=== PATIENT | male | born 1990 | race Caucasian/White ===

== ENCOUNTER 2024-05-18 09:53 | Emergency (ER) | payer MEDICAID, OTHER ==
[~2024-05-18] VITALS: Ht 185.4 cm; Wt 99.0 kg
[2024-05-18 09:56] VITALS: BP 184/94; PULSE 60; RESP 16; O2SAT 98
[2024-05-18 11:15] LABS: Basophils # (auto) 0.1 10 ^3/uL (0-0.2); Basophils % (auto) 0.3 % (0.0-2.0); Eosinophils # (auto) 0.1 10 ^3/uL (0-0.8); Eosinophils % (auto) 0.4 % (0.0-7.0); Hematocrit 44.9 % (41.0-53.0); Hemoglobin 14.6 g/dL (13.5-17.5); Lymphocytes % (auto) 5.7 % (10.0-50.0); Mean Corpuscular Hemoglobin 30.7 pg (28.0-32.0); Mean Corpuscular Hgb Conc. 32.5 g/dL (32.0-36.0); Mean Corpuscular Volume 94.4 fL (80.0-100.0); Monocytes # (auto) 1.5 10 ^3/uL (0-1.3); Monocytes % (auto) 8.7 % (0.0-12.0); Neutrophils # (auto) 14.7 10 ^3/uL (1.6-8.6); Neutrophils % (auto) 84.9 % (37.0-80.0); Platelet Count (auto) 325 10^3/uL (140-450); Red Blood Cells 4.75 10^6/uL (4.5-5.90); Red Cell Distribution Width 14.1 % (11.8-14.3); White Blood Cell 17.4 10^3/uL (4.4-10.8)
--- NOTE | 2024-05-18 11:15 | DVH ---
CT CT AB PEL WO CON-NO ORAL OR IV INDICATION: abdominal pain EXAM DATE: 05/18/2024 10:44 AM COMPARISON: None RADIATION DOSE: CTDIvol: 9.53 mGy, DLP: 791.71 mGy*cm PROCEDURE: Helical CT images were obtained of the abdomen and pelvis without IV contrast Sagittal an d coronal reconstructions are provided. ORAL CONTRAST: None. ADDITIONAL IMAGES / REFORMATS: None All CT scans at this medical facility are performed using dose modulation techniques as appropriate t o a performed exam including the following: Automated exposure control was utilized; adjustment of th e MA and/or KV according to patient size; and use of iterative reconstruction technique. FINDINGS: LUNG BASE: Normal. LIVER: Normal. GALLBLADDER AND BILIARY TREE: No calcified gallstones. Normal caliber wall. No intra- or extrahepatic biliary ductal dilation. PANCREAS: Normal. SPLEEN: Normal. BOWEL: Thickening of the descending colon could be colitis. Normal appendix. ADRENALS: Normal. KIDNEYS AND URETER: 1.4 cm right kidney stone. 4.2 cm left kidney cyst. BLADDER: Normal. REPRODUCTIVE ORGANS: Normal. LYMPH NODES:No lymphadenopathy. PERITONEUM: No ascites or free air. No other fluid collection. VESSELS: Normal. RETROPERITONEUM: Normal. ABDOMINAL WALL: Bowel containing left inguinal hernia with adjacent fat stranding. Small fat containi ng ventral wall hernia. BONES: Scattered osseous degenerative changes are noted. IMPRESSION: Bowel containing left inguinal hernia with adjacent fat stranding. Thickening of the descending colon could be colitis. Normal appendix. 1.4 cm right kidney stone.
[2024-05-18 11:32] LABS: Alanine Aminotransferase 20 U/L (7-40); Albumin 4.5 g/dL (3.2-4.8); Alkaline Phosphatase 71 U/L (46-116); Anion Gap 8 (5-15); BUN/Creatinine Ratio 18.1 (10.0-20.0); Blood Urea Nitrogen 15 mg/dL (9-23); Calcium 9.4 mg/dL (8.7-10.4); Carbon Dioxide 25 mmol/L (20-31); Lipase 31 U/L (12-53); Potassium 3.6 mmol/L (3.5-5.1); Sodium 141 mmol/L (136-145)
--- NOTE | 2024-05-18 11:32 | ED.PDOC ---
History of Present Illness HPI Comments 33 y/o M, with a current left-inguinal hernia, presents with c/o left-sided groin and abdominal pain, today. Patient reports sudden and unprovoked onset of pain emanating around his left groin, surrounding his inguinal hernia, and radiating upwards towards his abdomen, this morning. Patient states on states on never seeking surgical intervention regarding hernia in the past, due to previous onset of pain resolving on its own then. He denies having any urinary symptoms, nausea, vomiting, fever, chills, or other associated symptoms or modifiers at this time. Chief Complaint: Abdominal Pain Time Seen by MD: 10:50 Primary Care Provider: JARRETT Reviewed Notes: Nurses Notes, Medications, Allergies Allergies: Coded Allergies: NO KNOWN ALLERGIES (Unverified , 05/18/24) Information Source: Patient Mode of Arrival: EMS Severity: Moderate Timing: Hours Duration: Since onset Prehospital treatment: None Past Medical History PAST MEDICAL HISTORY: Kidney Stones Past Medical History (Other): current left-inguinal hernia Surgical History (Other): left acl repair Family History Family History: Unknown Social History Smoker: Non-Smoker Alcohol: Denies ETOH Use Drugs: Marijuana Lives In: Home Gastrointestinal: reports: abdominal pain (left-sided ) Genitourinary: reports: pain (left-groin) All Other Systems: Reviewed and Negative (negative unless otherwise stated above or in HPI) Physical Exam General Appearance: Moderate Distress, Normal, Other (uncomfortable appearing) HEENT: Normal ENT Inspection, Pharynx Normal, TMs Normal Neck: Full Range of Motion, Non-Tender, Normal, Normal Inspection Respiratory: Chest Non-Tender, Lungs Clear, No Accessory Muscle Use, No Respiratory Distress, Normal Breath Sounds Cardiovascular: No Edema, No JVD, No Murmur, No Gallop, Normal Peripheral Pulses, Regular Rate/Rhythm Breast Exam: Deferred Gastrointestinal: NOT DONE Genitalia: Deferred Pelvic: Deferred Rectal: Deferred Extremities: No calf tenderness, Normal capillary refill, Normal inspection, Normal range of motion, Non-tender, No pedal edema Musculoskeletal : Apperance: Normal Neurologic: Alert, family support worker II-XII nml as Tested, No Motor Deficits, Normal Affect, Normal Mood, No Sensory Deficits Cerebellar Function: Normal Reflexes: Normal Skin: Dry, Normal Color, Warm Lymphatic: No Adenopathy Was a procedure done? Was a procedure done?: No Differential Dx Considerations may include: incarcerated hernia, strangulated hernia, cystitis, pyelonephritis, nephrolithiasis, nephritis, testicular torsion, PID, gastritis, gastroenteritis X-Ray, Labs, Meds, VS Vital Signs Date Time Temp Pulse Resp B/P (MAP) Pulse Ox O2 Delivery O2 Flow Rate FiO2 05/18/24 09:56 97.6 60 16 184/94 (124) 98 Lab Test 05/18/24 12:30 05/18/24 10:44 Range/Units Urine Color Pending Urine Clarity Pending Urine pH Pending Urine Specific Jaffrey Pending Urine Protein Pending Urine Ketones Pending Urine Blood Pending Urine Nitrite Pending Urine Bilirubin Pending Urine Urobilinogen Pending Urine Leukocyte Esterase Pending Urine RBC Pending Urine WBC Pending Urine Squamous Epithelial Cells Pending Urine Bacteria Pending Urine Glucose Pending White Blood Count 17.4 H 4.4-10.8 10^3/uL Red Blood Count 4.75 4.5-5.90 10^6/uL Hemoglobin 14.6 13.5-17.5 g/dL Hematocrit 44.9 41.0-53.0 % Mean Corpuscular Volume 94.4 80.0-100.0 fL Mean Corpuscular Hemoglobin 30.7 28.0-32.0 pg Mean Corpuscular Hemoglobin Concent 32.5 32.0-36.0 g/dL Red Cell Distribution Width 14.1 11.8-14.3 % Platelet Count 325 140-450 10^3/uL Mean Platelet Volume 8.7 6.9-10.8 fL Neutrophils (%) (Auto) 84.9 H 37.0-80.0 % Lymphocytes (%) (Auto) 5.7 L 10.0-50.0 % Monocytes (%) (Auto) 8.7 0.0-12.0 % Eosinophils (%) (Auto) 0.4 0.0-7.0 % Basophils (%) (Auto) 0.3 0.0-2.0 % Neutrophils # (Auto) 14.7 H 1.6-8.6 10 ^3/uL Lymphocytes # (Auto) 1.0 0.4-5.4 10 ^3/uL Monocytes # (Auto) 1.5 H 0-1.3 10 ^3/uL Eosinophils # (Auto) 0.1 0-0.8 10 ^3/uL Basophils # (Auto) 0.1 0-0.2 10 ^3/uL Nucleated Red Blood Cells 0.0 % Prothrombin Time 11.2 9.3-11.8 sec Prothrombin Time INR 1.06 0.9-1.15 Activated Partial Thromboplast Time 28.5 24.5-34.5 SEC Sodium Level 141 136-145 mmol/L Potassium Level 3.6 3.5-5.1 mmol/L Chloride Level 108 H 98-107 mmol/L Carbon Dioxide Level 25 20-31 mmol/L Anion Gap 8 5-15 Blood Urea Nitrogen 15 9-23 mg/dL Creatinine 0.83 0.700-1.30 mg/dL Glomerular Filtration Rate Calc 118 >90 mL/min BUN/Creatinine Ratio 18.1 10.0-20.0 Serum Glucose 115 H 74-106 mg/dL Lactic Acid Level 0.8 0.4-2.0 mmol/L Calcium Level 9.4 8.7-10.4 mg/dL Magnesium Level 2.0 1.6-2.6 mg/dL Total Bilirubin 0.6 0.2-1.0 mg/dL Aspartate Amino Transferase (AST) 13 13-40 U/L Alanine Aminotransferase (ALT) 20 7-40 U/L Alkaline Phosphatase 71 46-116 U/L Total Protein 7.0 5.7-8.2 g/dL Albumin 4.5 3.2-4.8 g/dL Lipase 31 12-53 U/L [place] [id number] DIAGNOSTIC IMAGING Diagnostic Imaging Report : [id number] Signed PATIENT: Waqar Miller ACCT: [id number] UNIT: [id number] : 1990 LOC: ER ROOM / BED: / AGE / SEX: 33 / M ADM STATUS: REG ER SERVICE 1030 ORDERING PHYSICIAN: CODY TINSLEY MD PROCEDURE(s): ABPL - CT AB PEL WO CON-NO ORAL OR IV REASON: abdominal pain ORDER NUMBER(s): [id number], ACCESSION NUMBER(s): [id number] CT CT AB PEL WO CON-NO ORAL OR IV INDICATION: abdominal pain EXAM DATE: 05/18/2024 10:44 AM COMPARISON: None RADIATION DOSE: CTDIvol: 9.53 mGy, DLP: 791.71 mGy*cm PROCEDURE: Helical CT images were obtained of the abdomen and pelvis without IV contrast Sagittal and coronal reconstructions are provided. ORAL CONTRAST: None. ADDITIONAL IMAGES / REFORMATS: None All CT scans at this medical facility are performed using dose modulation techniques as appropriate to a performed exam including the following: Automated exposure control was utilized; adjustment of the MA and/or KV according to patient size; and use of iterative reconstruction technique. FINDINGS: LUNG BASE: Normal. LIVER: Normal. GALLBLADDER AND BILIARY TREE: No calcified gallstones. Normal caliber wall. No intra- or extrahepatic biliary ductal dilation. PANCREAS: Normal. SPLEEN: Normal. BOWEL: Thickening of the descending colon could be colitis. Normal appendix. ADRENALS: Normal. KIDNEYS AND URETER: 1.4 cm right kidney stone. 4.2 cm left kidney cyst. BLADDER: Normal. REPRODUCTIVE ORGANS: Normal. LYMPH NODES:No lymphadenopathy. PERITONEUM: No ascites or free air. No other fluid collection. VESSELS: Normal. RETROPERITONEUM: Normal. ABDOMINAL WALL: Bowel containing left inguinal hernia with adjacent fat stranding. Small fat containing ventral wall hernia. BONES: Scattered osseous degenerative changes are noted. IMPRESSION: Bowel containing left inguinal hernia with adjacent fat stranding. Thickening of the descending colon could be colitis. Normal appendix. 1.4 cm right kidney stone. ATED BY: HUBER CRAWFORD MD DICTATED DATE/TIME: 05/18/24 111 SIGNED BY: HUBER CRAWFORD MD SIGNED DATE/TIME: 05/18/24 111 CC: X-Ray, Labs, Meds, VS Comment This 33-year-old male with known reducible left-sided inguinal hernia presents secondary 1 day history of increasing pain to his left groin. He states he is unable to reduce the hernia. The pain is severe with associated nausea. Denies vomiting. Denies fever, chills, sweats. CT shows an test within the inguinal canal with fat stranding. This is a concern for incarceration. The patient was made NPO, started on IV hydration, provided with morphine, Zofran, and Zosyn. Patient will be admitted for for surgical management of the incarcerated left inguinal hernia. Time of 1ST Reevaluation: 11:20 Reevaluation 1ST: Unchanged Patient Education/Counseling: Diagnosis, Treatment Family Education/Counseling: No Family Present Departure 1 Departure Time of Disposition: 13:20 Impression: Primary Impression: Incarcerated hernia Additional Impression: Abdominal pain Disposition: ADMITTED INPATIENT Admit to: Tele Condition: Serious Critical Care Note Critical Care Time?: No Stability Stability form required: No Heart Score Heart Score: Heart Score Response (Comments) Value History N/A 0 EKG N/A 0 Age N/A 0 Risk Factors N/A 0 Troponin N/A 0 Total 0 I personally scribed for CODY TINSLEY MD ([email or web address]) on 05/18/24 at 11:32. Electronically submitted by Dima Bravo ([email or web address]). I personally scribed for CODY TINSLEY MD ([email or web address]) on 05/18/24 at 11:33. Electronically submitted by Dima Bravo ([email or web address]). CODY TINSLEY MD May 18, 2024 11:32
[2024-05-18 11:33] LABS: Bilirubin, Total 0.6 mg/dL (0.2-1.0)
[2024-05-18 11:37] LABS: INR 1.06 (0.9-1.15); Partial Thromboplastin Time 28.5 SEC (24.5-34.5); Prothrombin Time 11.2 sec (9.3-11.8)
[2024-05-18 11:49] LABS: Aspartate Aminotransferase 13 U/L (13-40); Chloride 108 mmol/L (98-107); Glucose 115 mg/dL (74-106)
[2024-05-18 13:06] LABS: Urine Bacteria None Seen /hpf (None Seen)
[2024-05-18 13:20] LABS: Urine Blood 2+ /uL (Negative); Urine Clarity Clear (Clear); Urine Color Yellow (Yellow); Urine Mucus FEW (None Seen); Urine Protein, UAD TRACE (Negative); Urine Specific Gravity 1.026 (1.001-1.035); Urine Urobilinogen 3 mg/dL (Negative); Urine WBC 1 /hpf (0 - 3)
[2024-05-18] MEDS ORDERED: PIPERACILLIN-TAZOB 3.375GM 100 ML IV ONE (13:30)
[2024-05-18] MEDS ORDERED: MORPHINE SULFATE 4 MG/ML SYR/VIAL IV ONE (13:30)
[2024-05-18] MEDS ORDERED: ONDANSETRON HCL 4 MG/2 ML VIAL IV ONE (13:30)
[2024-05-18] MEDS ORDERED: PENI500T2 PO (15:06)
== END 2024-05-18 15:02 | disposition left against medical advice (07) ==
LOC: ER 09:53 → EDBD 09:53 → ER 15:01
DX: K46.0 Unspecified abdominal hernia with obstruction, without gangrene (principal); N20.0 Calculus of kidney; F12.10 Cannabis abuse, uncomplicated; Z79.899 Other long term (current) drug therapy
CPT/HCPCS: 36415; 74176; 80053; 81001; 83605; 83690; 83735; 85025; 85610; 85730

== ENCOUNTER 2024-05-19 22:04 | Inpatient (IN) | payer MEDICAID ==
[~2024-05-19] VITALS: Ht 182.9 cm; Wt 99.1 kg
[2024-05-19 22:57] LABS: Basophils # (auto) 0.1 10 ^3/uL (0-0.2); Basophils % (auto) 0.6 % (0.0-2.0); Eosinophils # (auto) 0.2 10 ^3/uL (0-0.8); Hematocrit 44.9 % (41.0-53.0); Hemoglobin 14.8 g/dL (13.5-17.5); Lymphocytes # (auto) 2.7 10 ^3/uL (0.4-5.4); Lymphocytes % (auto) 22.2 % (10.0-50.0); Mean Corpuscular Hemoglobin 31.3 pg (28.0-32.0); Mean Corpuscular Volume 94.9 fL (80.0-100.0); Monocytes # (auto) 1.4 10 ^3/uL (0-1.3); Monocytes % (auto) 11.5 % (0.0-12.0); Neutrophils # (auto) 7.9 10 ^3/uL (1.6-8.6); Neutrophils % (auto) 63.7 % (37.0-80.0); Nucleated Red Blood Cells % 0.1 %; Platelet Count (auto) 332 10^3/uL (140-450); Red Blood Cells 4.74 10^6/uL (4.5-5.90); Red Cell Distribution Width 13.7 % (11.8-14.3); White Blood Cell 12.4 10^3/uL (4.4-10.8)
[2024-05-19 23:09] LABS: Chloride 105 mmol/L (98-107); Potassium 3.7 mmol/L (3.5-5.1); Sodium 141 mmol/L (136-145)
[2024-05-19 23:10] LABS: Anion Gap 9 (5-15); Calcium 10.1 mg/dL (8.7-10.4); Carbon Dioxide 27 mmol/L (20-31)
[2024-05-19 23:15] LABS: BUN/Creatinine Ratio 7.5 (10.0-20.0); Glucose 96 mg/dL (74-106)
--- NOTE | 2024-05-19 23:17 | ED.PDOC ---
General HPI Comments 33-year-old male with PMHx Kidney Stones presents with a chief complaint of left inguinal hernia pain x 2 days. Patient states that he has had an inguinal hernia since October 2023 and that it usually protrudes, then goes back in at night. Patient mentions that for the past x 2 days, the pain has increased to the hernia and it has not reduced on its own. Patient mentions that it now is affecting his bowel habits and is not able to use the restroom. Patient was seen here yesterday, but states that he eloped because of the wait. No other symptoms or modifying factors present at this time. Chief Complaint: Abdominal Pain Time Seen by MD: 23:04 Primary Care Provider: JARRETT Reviewed notes: Medications, Allergies Allergies: Coded Allergies: NO KNOWN ALLERGIES (Unverified , 05/18/24) Information Source: Patient Mode of Arrival: Ambulatory Severity: Moderate Inability to void: None Timing: Days Duration: Since onset Has not urinated for: Hours Prehospital treatment: None Onset: Spontaneous Symptoms: None Location male: L Scrotum (LEFT INGUINAL ) Penile discharge: None Modifying factors: None Past Medical History PAST MEDICAL HISTORY: Kidney Stones Surgical History: Denies all surgeries Family History Family History: Unknown Social History Smoker: Non-Smoker Alcohol: Denies ETOH Use Drugs: Marijuana Lives In: Home Constitutional: denies: chills, diaphoresis, fatigue, fever, malaise, sweats, weakness, others EENTM: denies: blurred vision, double vision, ear bleeding, ear discharge, ear drainage, ear pain, ear ringing, eye pain, eye redness, hearing loss, mouth pain, mouth swelling, nasal discharge, nose bleeding, nose congestion, nose pain, photophobia, tearing, throat pain, throat swelling, voice changes, others Respiratory: denies: cough, hemoptysis, orthopnea, SOB at rest, shortness of breath, SOB with excertion, stridor, wheezing, others Cardiovascular: denies: chest pain, dizzy spells, diaphoresis, Dyspnea on exertion, edema, irregular heart beat, left arm pain, lightheadedness, palpitations, PND, syncope, others Gastrointestinal: reports: abdominal pain (LEFT INGUINAL HERNIA); denies: abdomen distended, blood streaked bowels, constipated, diarrhea, dysphagia, difficulty swallowing, hematemesis, melena, nausea, poor appetite, poor fluid intake, rectal bleeding, rectal pain, vomiting, others Genitourinary: denies: burning, dysuria, flank pain, frequency, hematuria, incontinence, penile discharge, penile sore, pain, testicle pain, testicle swelling, urgency, others Neurological: denies: dizziness, fainting, headache, left sided numbness, left sided weakness, numbness, paresthesia, pre-existing deficit, right sided numbness, right sided weakness, seizure, speech problems, tingling, tremors, weakness, others Musculoskeletal: denies: back pain, gout, joint pain, joint swelling, muscle pain, muscle stiffness, neck pain, others Integumetry: denies: bruises, change in color, change in hair/nails, dryness, laceration, lesions, lumps, rash, wounds, others Allergic/Immunocompromised: denies: Difficulty Healing, Frequent Infections, Hives, Itching, others Hematologic/Lymphatic: denies: anemia, blood clots, easy bleeding, easy bruising, swollen glands, others Endocrine: denies: excessive hunger, excessive sweating, excessive thirst, excessive urination, flushing, intolerance to cold, intolerance to heat, unexplained weight gain, unexplained weight loss, others Psychiatric: denies: anxiety, bipolar disorder, depression, hopeless, panic disorder, schizophrenia, sleepless, suicidal, others All Other Systems: Reviewed and Negative Physical Exam General Appearance: No Apparent Distress, Normal HEENT: Normal ENT Inspection, Pharynx Normal, TMs Normal Neck: Full Range of Motion, Non-Tender, Normal, Normal Inspection Respiratory: Chest Non-Tender, Lungs Clear, No Accessory Muscle Use, No Respiratory Distress, Normal Breath Sounds Cardiovascular: No Edema, No JVD, No Murmur, No Gallop, Normal Peripheral Pulses, Regular Rate/Rhythm Breast Exam: Deferred Gastrointestinal: No Organomegaly, Non Tender, No Pulsatile Mass, Normal Bowel Sounds, Soft Genitalia: Deferred Pelvic: Deferred Rectal: Deferred Extremities: No calf tenderness, Normal capillary refill, Normal inspection, Normal range of motion, Non-tender, No pedal edema Musculoskeletal : Apperance: Normal Neurologic: Alert, log cutter II-XII nml as Tested, No Motor Deficits, Normal Affect, Normal Mood, No Sensory Deficits Cerebellar Function: Normal Reflexes: Normal Skin: Dry, Normal Color, Warm Lymphatic: No Adenopathy Was a procedure done? Was a procedure done?: No Differential Diagnosis Kidney stone (Female): N/A Kidney stone (Male): N/A Penile/Scrotal: N/A Urinary Problem (Male): N/A Urinary Problem (Female): N/A Other Differential Diagnosis Incarcerated or strangulated inguinal hernia X-Ray, Labs, Meds, VS Vital Signs Date Time Temp Pulse Resp B/P (MAP) Pulse Ox O2 Delivery O2 Flow Rate FiO2 05/19/24 22:28 97.6 100 18 153/85 (107) 99 Lab Test 05/19/24 22:44 Range/Units White Blood Count 12.4 #H 4.4-10.8 10^3/uL Red Blood Count 4.74 4.5-5.90 10^6/uL Hemoglobin 14.8 13.5-17.5 g/dL Hematocrit 44.9 41.0-53.0 % Mean Corpuscular Volume 94.9 80.0-100.0 fL Mean Corpuscular Hemoglobin 31.3 28.0-32.0 pg Mean Corpuscular Hemoglobin Concent 33.0 32.0-36.0 g/dL Red Cell Distribution Width 13.7 11.8-14.3 % Platelet Count 332 140-450 10^3/uL Mean Platelet Volume 8.3 6.9-10.8 fL Neutrophils (%) (Auto) 63.7 37.0-80.0 % Lymphocytes (%) (Auto) 22.2 10.0-50.0 % Monocytes (%) (Auto) 11.5 0.0-12.0 % Eosinophils (%) (Auto) 2.0 0.0-7.0 % Basophils (%) (Auto) 0.6 0.0-2.0 % Neutrophils # (Auto) 7.9 1.6-8.6 10 ^3/uL Lymphocytes # (Auto) 2.7 0.4-5.4 10 ^3/uL Monocytes # (Auto) 1.4 H 0-1.3 10 ^3/uL Eosinophils # (Auto) 0.2 0-0.8 10 ^3/uL Basophils # (Auto) 0.1 0-0.2 10 ^3/uL Nucleated Red Blood Cells 0.1 % Sodium Level 141 136-145 mmol/L Potassium Level 3.7 3.5-5.1 mmol/L Chloride Level 105 98-107 mmol/L Carbon Dioxide Level 27 20-31 mmol/L Anion Gap 9 5-15 Blood Urea Nitrogen 8 L 9-23 mg/dL Creatinine 1.06 0.700-1.30 mg/dL Glomerular Filtration Rate Calc 94 >90 mL/min BUN/Creatinine Ratio 7.5 L 10.0-20.0 Serum Glucose 96 74-106 mg/dL Calcium Level 10.1 8.7-10.4 mg/dL Time of 1ST Reevaluation: 23:34 Reevaluation 1ST: Unchanged Patient Education/Counseling: Diagnosis, Treatment, Prognosis Family Education/Counseling: No Family Present Departure 1 Departure Time of Disposition: 23:33 ([place] Authorization [id number] to admit and operate here. I can not reduce patient's hernia. We will admit patient for further workup and surgical consultation.) Impression: Primary Impression: Left inguinal hernia Disposition: ADMITTED INPATIENT Admit to: Med Surg Condition: Serious Critical Care Note Critical Care Time?: Yes Critical care comment: Concern for incarcerated hernia Intractable abdominal pain Authorized and Performed by: Janeth Pearl MD Total critical care time: Approximately 34 minutes Due to a high probability of clinically significant, life threatening deterioration, the patient required my highest level of preparedness to intervene emergently and I personally spent this critical care time directly and personally managing the patient. This critical care time included obtaining a history; examining the patient; pulse oximetry; ordering and review of studies; arranging urgent treatment with development of a management plan; evaluation of patient's response to treatment; frequent reassessment; and, discussions with other providers. This critical care time was performed to assess and manage the high probability of imminent, life-threatening deterioration that could result in multi-organ failure. It was exclusive of separately billable procedures and treating other patients and teaching time. Please see my other sections and the rest of the note for further information on patient assessment and treatment. Stability Stability form required: No Heart Score Heart Score: Heart Score Response (Comments) Value History N/A 0 EKG N/A 0 Age N/A 0 Risk Factors N/A 0 Troponin N/A 0 Total 0 I personally scribed for JANETH PEARL MD ([email or web address]) on 05/19/24 at 23:17. Electronically submitted by Jarvis Linares ([email or web address]). JANETH PEARL MD May 19, 2024 23:17
[2024-05-19 23:29] LABS: Blood Urea Nitrogen 8 mg/dL (9-23)
[2024-05-20] VITALS (9 sets, daily range): BP systolic 135–149; BP diastolic 54–79; PULSE 75–98; RESP 12–20; TEMP 97.6–98.7; O2SAT 93–100
[2024-05-20] MEDS ORDERED: ONDANSETRON HCL 4 MG/2 ML VIAL IV PRN
--- NOTE | 2024-05-20 00:04 | DVHHP2 ---
History of Present Illness Reason for Visit: Hernia History of Present Illness 33-year-old male presents for evaluation of a left inguinal hernia. Patient reports having a left inguinal hernia that he has not been able to patient in since yesterday. He reports constant pressure. He also reports constipation since yesterday. No nausea or vomiting. No other acute complaints reported. Past Medical History Kidney stones Past Surgical History Denies Family History Noncontributory Smoke: No ALCOHOL: none Drugs: Marijuana Lives: with Family Review of Systems Review of Systems Review of systems are currently negative otherwise addressed in HPI. Allergies: Coded Allergies: NO KNOWN ALLERGIES (Unverified , 05/18/24) Medications Current Medications Medications Dose Ordered Sig/Ginna Route Start Time Stop Time Status Last Admin Dose Admin Ondansetron HCl 4 mg Q4HP PRN IV 05/20/24 00:00 UNV Morphine Sulfate 2 mg Q4HPRN PRN IV 05/20/24 00:00 UNV Exam Vital Signs Vital Signs Date Time Temp Pulse Resp B/P (MAP) Pulse Ox O2 Delivery O2 Flow Rate FiO2 05/19/24 23:57 98.0 108 18 152/100 (117) 98 98.0 Exam Gen: 33-year-old male mild distress Skin: Warm, dry, normal color and texture, no rash. HEENT: Normocephalic atraumatic, mucous membranes moist and pink. Neck: Cervical and supraclavicular nodes normal without enlargement, trachea is midline, thyroid gland is normal without masses. Pulmonary: Clear to auscultation and percussion bilaterally. Cardiac: Regular rate and rhythm. No murmur Abdomen: Soft, left irreducible inguinal hernia, nondistended, bowel sounds present all 4 quadrants, no guarding, no rigidity, no organomegaly. Extremities: No cyanosis, clubbing, no edema Neuro: Cranial nerves II through XII grossly intact, normal affect and speech, no focal motor deficits. Labs/Xrays ORDERING PHYSICIAN: CODY TINSLEY MD PROCEDURE(s): ABPL - CT AB PEL WO CON-NO ORAL OR IV REASON: abdominal pain ORDER NUMBER(s): [id number], ACCESSION NUMBER(s): [id number] CT CT AB PEL WO CON-NO ORAL OR IV INDICATION: abdominal pain EXAM DATE: 05/18/2024 10:44 AM COMPARISON: None RADIATION DOSE: CTDIvol: 9.53 mGy, DLP: 791.71 mGy*cm PROCEDURE: Helical CT images were obtained of the abdomen and pelvis without IV contrast Sagittal and coronal reconstructions are provided. ORAL CONTRAST: None. ADDITIONAL IMAGES / REFORMATS: None All CT scans at this medical facility are performed using dose modulation te chniques as appropriate to a performed exam including the following: Automated exposure control was utilized; adjustment of the MA and/or KV according to patient size; and use of iterative reconstruction technique. FINDINGS: LUNG BASE: Normal. LIVER: Normal. GALLBLADDER AND BILIARY TREE: No calcified gallstones. Normal caliber wall. No intra- or extrahepatic biliary ductal dilation. PANCREAS: Normal. SPLEEN: Normal. BOWEL: Thickening of the descending colon could be colitis. Normal appendix. ADRENALS: Normal. KIDNEYS AND URETER: 1.4 cm right kidney stone. 4.2 cm left kidney cyst. BLADDER: Normal. REPRODUCTIVE ORGANS: Normal. LYMPH NODES:No lymphadenopathy. PERITONEUM: No ascites or free air. No other fluid collection. VESSELS: Normal. RETROPERITONEUM: Normal. ABDOMINAL WALL: Bowel containing left inguinal hernia with adjacent fat stranding. Small fat containing ventral wall hernia. BONES: Scattered osseous degenerative changes are noted. IMPRESSION: Bowel containing left inguinal hernia with adjacent fat stranding. Thickening of the descending colon could be colitis. Normal appendix. 1.4 cm right kidney stone. Labs Test 05/19/24 22:44 Range/Units White Blood Count 12.4 #H 4.4-10.8 10^3/uL Red Blood Count 4.74 4.5-5.90 10^6/uL Hemoglobin 14.8 13.5-17.5 g/dL Hematocrit 44.9 41.0-53.0 % Mean Corpuscular Volume 94.9 80.0-100.0 fL Mean Corpuscular Hemoglobin 31.3 28.0-32.0 pg Mean Corpuscular Hemoglobin Concent 33.0 32.0-36.0 g/dL Red Cell Distribution Width 13.7 11.8-14.3 % Platelet Count 332 140-450 10^3/uL Mean Platelet Volume 8.3 6.9-10.8 fL Neutrophils (%) (Auto) 63.7 37.0-80.0 % Lymphocytes (%) (Auto) 22.2 10.0-50.0 % Monocytes (%) (Auto) 11.5 0.0-12.0 % Eosinophils (%) (Auto) 2.0 0.0-7.0 % Basophils (%) (Auto) 0.6 0.0-2.0 % Neutrophils # (Auto) 7.9 1.6-8.6 10 ^3/uL Lymphocytes # (Auto) 2.7 0.4-5.4 10 ^3/uL Monocytes # (Auto) 1.4 H 0-1.3 10 ^3/uL Eosinophils # (Auto) 0.2 0-0.8 10 ^3/uL Basophils # (Auto) 0.1 0-0.2 10 ^3/uL Nucleated Red Blood Cells 0.1 % Sodium Level 141 136-145 mmol/L Potassium Level 3.7 3.5-5.1 mmol/L Chloride Level 105 98-107 mmol/L Carbon Dioxide Level 27 20-31 mmol/L Anion Gap 9 5-15 Blood Urea Nitrogen 8 L 9-23 mg/dL Creatinine 1.06 0.700-1.30 mg/dL Glomerular Filtration Rate Calc 94 >90 mL/min BUN/Creatinine Ratio 7.5 L 10.0-20.0 Serum Glucose 96 74-106 mg/dL Calcium Level 10.1 8.7-10.4 mg/dL Assessment/Plan Assessment/Plan Assessment Left inguinal hernia,? Strangulated Acute abdominal pain Plan Admit the patient to [facility] to the hospitalist Surgical consultation, Dr. Umaña aware of the case and will assess patient in the morning. Keep the patient NPO Maintenance IV fluids Pain management Continue treatment per orders. Plan discussed with: Patient My Orders Orders - JONAS AGUAYO AGACNP Procedure Category Date Status Time Admit ADMIT 05/19/24 Transmitted 23:51 Chest Xray 1 View XY 05/19/24 Logged 23:53 Type And Screen BBK 05/19/24 Logged 23:53 PTPTT LAB 05/19/24 Logged 23:53 Sodium Chloride 0.9% PHA 05/20/24 Logged 00:00 Ondansetron Hcl PHA 05/20/24 Logged (Zofran) 00:00 Complete Blood Count LAB 05/20/24 Verified 04:00 Comprehensive LAB 05/20/24 Verified Metabolic Panel 04:00 Npo (Nothing By DIET 05/20/24 Transmitted Mouth) Diet Breakfast Condition: Stable HOMA 05/19/24 In Process 23:53 Bedrest With Bathroom HOMA 05/19/24 In Process Privileg 23:53 Morphine Sulfate PHA 05/20/24 Logged Injection 00:00 Date of Service: May 19, 2024 Billing Provider: JONAS AGUAYO Common Visit Codes: 57109-[id number] INP/OBS CARE (MOD) JONAS AGUAYO May 20, 2024 00:03
[2024-05-20] MEDS: SODIUM CHLORIDE 0.9% 1,000 ML IV ONE ×2 (00:16→01:04)
[2024-05-20] MEDS: MORPHINE SULFATE 4 MG/ML SYR/VIAL IV ONE (00:24)
[2024-05-20] MEDS: ONDANSETRON HCL 4 MG/2 ML VIAL IV ONE ×2 (00:24→13:04)
[2024-05-20 00:38] LABS: INR 1.06 (0.9-1.15); Partial Thromboplastin Time 29.6 SEC (24.5-34.5); Prothrombin Time 11.2 sec (9.3-11.8)
--- NOTE | 2024-05-20 00:42 | DVH ---
EXAM: XY CHEST XRAY 1 VIEW CLINICAL HISTORY: preop TECHNIQUE: Single AP view of the chest WID: COMPARISON: None FINDINGS: Lines and tubes: None Chest: The heart size and pulmonary vasculature is within normal limits. No pleural effusion, pneumothorax, or consolidation. The osseous structures are grossly intact. IMPRESSION: No acute cardiopulmonary abnormality.
[2024-05-20 04:00] LABS: Basophils # (auto) 0 10 ^3/uL (0-0.2); Basophils % (auto) 0.4 % (0.0-2.0); Eosinophils # (auto) 0.2 10 ^3/uL (0-0.8); Eosinophils % (auto) 2.6 % (0.0-7.0); Hemoglobin 13.5 g/dL (13.5-17.5); Lymphocytes # (auto) 2.3 10 ^3/uL (0.4-5.4); Lymphocytes % (auto) 23.9 % (10.0-50.0); Mean Corpuscular Hgb Conc. 33.7 g/dL (32.0-36.0); Mean Corpuscular Volume 94.9 fL (80.0-100.0); Monocytes # (auto) 1.1 10 ^3/uL (0-1.3); Monocytes % (auto) 11.6 % (0.0-12.0); Neutrophils % (auto) 61.5 % (37.0-80.0); Platelet Count (auto) 281 10^3/uL (140-450); Red Blood Cells 4.21 10^6/uL (4.5-5.90); Red Cell Distribution Width 13.5 % (11.8-14.3); White Blood Cell 9.7 10^3/uL (4.4-10.8)
[2024-05-20 04:23] LABS: Alanine Aminotransferase 15 U/L (7-40); Alkaline Phosphatase 68 U/L (46-116); Anion Gap 8 (5-15); BUN/Creatinine Ratio 7.2 (10.0-20.0); Calcium 9.2 mg/dL (8.7-10.4); Carbon Dioxide 26 mmol/L (20-31); Glucose 88 mg/dL (74-106); Potassium 3.6 mmol/L (3.5-5.1); Sodium 142 mmol/L (136-145); Total Protein 6.2 g/dL (5.7-8.2)
[2024-05-20 04:26] LABS: Aspartate Aminotransferase 9 U/L (13-40); Blood Urea Nitrogen 7 mg/dL (9-23); Chloride 108 mmol/L (98-107)
[2024-05-20] MEDS: MORPHINE SULFATE INJ 2 MG/ml SYRG IV PRN (06:20)
[2024-05-20] MEDS: D5W/SOD CHLO 0.9% 1,000 ML IV SCH (08:07)
--- NOTE | 2024-05-20 08:31 | DVHINCON2 ---
Date of service: May 20, 2024 Allergies: Coded Allergies: NO KNOWN ALLERGIES (Unverified , 05/18/24) Current Medications Current Medications Medications (Trade) Dose Ordered Sig/Ginna Route PRN Reason Start Time Stop Time Status Last Admin Ondansetron HCl (Zofran) 4 mg Q4HP PRN IV NAUSEA / VOMITING 05/20/24 00:00 Morphine Sulfate 2 mg Q4HPRN PRN IV SEVERE PAIN (7-10 PAIN SCALE) 05/20/24 00:00 05/20/24 06:20 Dextrose/Sodium Chloride 1,000 ml @ 125 mls/hr Q8H IV 05/20/24 07:30 05/20/24 08:07 Pantoprazole Sodium (Protonix) 40 mg BID IV 05/20/24 10:00 Vital Signs Vital Signs Date Time Temp Pulse Resp B/P (MAP) Pulse Ox O2 Delivery O2 Flow Rate FiO2 05/20/24 08:00 58 05/20/24 07:30 20 95 Room Air* 0 21 05/20/24 07:30 98.3 147/93 (111) 98.3 Labs/Diagnostic Data Labs Test 05/20/24 03:29 05/19/24 22:44 Range/Units White Blood Count 9.7 4.4-10.8 10^3/uL Red Blood Count 4.21 L 4.5-5.90 10^6/uL Hemoglobin 13.5 13.5-17.5 g/dL Hematocrit 40.0 #L 41.0-53.0 % Mean Corpuscular Volume 94.9 80.0-100.0 fL Mean Corpuscular Hemoglobin 32.0 28.0-32.0 pg Mean Corpuscular Hemoglobin Concent 33.7 32.0-36.0 g/dL Red Cell Distribution Width 13.5 11.8-14.3 % Platelet Count 281 140-450 10^3/uL Mean Platelet Volume 8.4 6.9-10.8 fL Neutrophils (%) (Auto) 61.5 37.0-80.0 % Lymphocytes (%) (Auto) 23.9 10.0-50.0 % Monocytes (%) (Auto) 11.6 0.0-12.0 % Eosinophils (%) (Auto) 2.6 0.0-7.0 % Basophils (%) (Auto) 0.4 0.0-2.0 % Neutrophils # (Auto) 6.0 1.6-8.6 10 ^3/uL Lymphocytes # (Auto) 2.3 0.4-5.4 10 ^3/uL Monocytes # (Auto) 1.1 0-1.3 10 ^3/uL Eosinophils # (Auto) 0.2 0-0.8 10 ^3/uL Basophils # (Auto) 0 0-0.2 10 ^3/uL Nucleated Red Blood Cells 0.0 % Sodium Level 142 136-145 mmol/L Potassium Level 3.6 3.5-5.1 mmol/L Chloride Level 108 H 98-107 mmol/L Carbon Dioxide Level 26 20-31 mmol/L Anion Gap 8 5-15 Blood Urea Nitrogen 7 L 9-23 mg/dL Creatinine 0.97 0.700-1.30 mg/dL Glomerular Filtration Rate Calc 105 >90 mL/min BUN/Creatinine Ratio 7.2 L 10.0-20.0 Serum Glucose 88 74-106 mg/dL Calcium Level 9.2 8.7-10.4 mg/dL Total Bilirubin 1.0 0.2-1.0 mg/dL Aspartate Amino Transferase (AST) 9 L 13-40 U/L Alanine Aminotransferase (ALT) 15 7-40 U/L Alkaline Phosphatase 68 46-116 U/L Total Protein 6.2 5.7-8.2 g/dL Albumin 4.0 3.2-4.8 g/dL Prothrombin Time 11.2 9.3-11.8 sec Prothrombin Time INR 1.06 0.9-1.15 Activated Partial Thromboplast Time 29.6 24.5-34.5 SEC Lactate Dehydrogenase 244 120-246 U/L Assessment 33 year old male with a left inguinal hernia which became irreducible two or three days ago, denies nausea, vomiting, has a firm slightly tender left inguinal hernia extending into his left scrotal compartment. I was not notified of his admission last night, will proceed with repair, procedure risks and complications explained in detail. He his a non smoker, non drinker, uses marihuana, has no allergies, denies nausea or vomiting. Plan discussed with: Patient CALIN AMES MD May 20, 2024 08:31
--- NOTE | 2024-05-20 09:02 | DVHPNRES ---
Progress Note Date Seen: May 20, 2024 Resident Creating Document: HENNY PALMA RESIDENT Medical Necessity Reason Pt with a Central, PICC or Fol: No Subjective Review of Systems Patient is 33 years old male with a history of lung inguinal hernia, bilateral kidney stone, history of UTI, drug abuse marijuana came with a complaint of left lower abdominal pain. Patient reported that he has been having pain in the left lower abdomen for 2 days where he has swelling of the inguinal region, swelling extending up to the scrotum. Patient reported he went to the ER and had a CT of the abdomen and then he was discharged with a any surgical intervention. Patient reported that the pain kept coming back swelling reduce and then the urgent care where he was recommended to go back to the emergency room with the evaluation and care. Patient reported the pain was 10/10, crampy, sharp in nature, aggravated with coughing or moving around or restraining, some relief with the pain. Patient complains of ongoing pain and swelling. Patient also reported his scrotum is still swollen and not getting any better. On physical exam there is left inguinal anfd scrotal swelling with irreducible left inguinal hernia, strangulated inguinal hernia with tenderness. Patient was seen by surgeon Dr. Severino recommended for urgent surgical intervention. CT abdomen on 05/18/2024 revealed-Bowel containing left inguinal hernia with adjacent fat stranding.Thickening of the descending colon could be colitis. Normal appendix. 1.4 cm right kidney stone. Initial lab workup revealed leukocytosis with WBC 12.4. PMH-kidney stone, left inguinal hernia, history of UTI PSH-repair of left anterior cruciate ligament surgery, tonsillectomy Allergy-NKDA Personal History/ Social History- lives with family, smokes marijuana, denies smoking or alcoholism Patient was seen today at the bedside. Patient reports pain in the left inguinal region, swelling Cardiovascular- deny acute chest pain or shortness of breath or cough or palpitation Respiratory- denies cough or short of breath or wheezing Gastrointestinal- denies any rectal bleeding, nausea or vomiting Musculoskeletal-denies acute joint swelling or tenderness or redness Neurological- denies acute dysarthria, dysphagia, change in vision Psychiatry- denies depression or SI or HI Skin- denies acute rash or purpura Patient is seen today for clinical evaluation. Labs and chart reviewed. Patient has leukocytosis WBC 12.4. Patient reports ongoing left inguinal pain 9/10, sharp with swelling. Patient's left inguinal region is swollen with the scrotum swelling. Patient noted to have left strangulated inguinal hernia. Patient was seen by surgeon martina and recommended for urgent surgical intervention to avoid complication. Objective vital signs Vital Sign Date Time Temp Pulse Resp B/P (MAP) Pulse Ox O2 Delivery O2 Flow Rate FiO2 05/20/24 08:51 76 17 100 Room Air* 0 21 05/20/24 08:45 98.7 144/54 (84) 98.7 Total Intake and Output 05/19/24 05/19/24 05/20/24 15:00 23:00 07:00 Intake Total 75 ml Balance 75 ml medications Current Medications Medications Dose Ordered Sig/Ginna Route Start Time Stop Time Status Last Admin Dose Admin Ondansetron HCl 4 mg Q4HP PRN IV 05/20/24 00:00 Morphine Sulfate 2 mg Q4HPRN PRN IV 05/20/24 00:00 05/20/24 06:20 2 MG Dextrose/Sodium Chloride 1,000 ml @ 125 mls/hr Q8H IV 05/20/24 07:30 05/20/24 08:07 125 MLS/HR Pantoprazole Sodium 40 mg BID IV 05/20/24 10:00 Examination General examination- patient at distress HEENT- PEERLA, no acute nasal discharge Cardiovascular- S1-S2 audible, rate and rhythm regular, no murmur Respiratory- CTAB, no wheeze or rhonchi Gastrointestinal-left inguinal region swollen, scrotum swollen in the left side, tenderness+, bowel sound+. Musculoskeletal-no acute joint swelling or tenderness or redness# Lower extremity- no leg edema Neurological- cranial nerves intact, no acute dysarthria or dysphagia Psychiatry- denies depression or SI or HI Skin- no acute rash or purpura laboratory and microbiology Laboratory Tests 05/20/24 03:29 Test 05/20/24 03:29 Range/Units Serum Glucose 88 74-106 mg/dL Problem List/Assessment/Plan Problem List/Assessment/Plan # Left inguinal region pain and swelling due to strangulated left inguinal hernia # Strangulated left inguinal hernia-need immediate surgical intervention # right renal stone # history of UTI # substance abuse marijuana Patient was seen by surgeon Dr. Severino recommended for urgent surgical intervention NPO until further order Pre reported as per surgical team -continue with pain medication as prescribed and other treatment as prescribed -continue IV fluid as prescribed Patient is 33 years old male with leukocytosis and strangulated left inguinal hernia with ongoing severe pain. Patient is unstable to be transferred at this moment. Patient was seen by surgeon Dr. Severino recommended for urgent surgical intervention. Patient is scheduled for surgical intervention in the morning. Goals of care/advance care planning; FULL CODE; discussed with the patient >15 minutes PUD prophylaxis: Pantoprazole DVT prophylaxis: Patient is ambulating Plan discussed with Dr. Crespo, nursing staff, patient Total time spent on patient evaluation, chart review, assessment and plan, discussion discussion >30 minutes Plan discussed with: Patient Plan discussed with: Patient, Other (RN) My Orders My Orders Orders - HENNY PALMA Procedure Category Date Status Time D5w/Sod Chlo 0.9% PHA 05/20/24 In Process (D5w Ns 0.9%) 07:30 Pantoprazole PHA 05/20/24 In Process (Protonix) 10:00 * Surgical Consult CONS 05/20/24 Transmitted 07:23 HENNY PALMA May 20, 2024 09:02
[2024-05-20] MEDS: BUPIVACAINE HCL 50 ML ONE (09:07)
[2024-05-20] MEDS: LIDOCAINE W/ EPINEPHRINE 1% 20ML VIAL ONE (09:07)
[2024-05-20] MEDS ORDERED: HYDROmorphone HCL 2 MG/ML VL/or syr IV PRN (09:45)
[2024-05-20] MEDS ORDERED: fentaNYL CITRATE 100 MCG/2 ML VL ONE (09:46)
[2024-05-20] MEDS ORDERED: MIDAZOLAM HCL 2MG/2ML 2ml VIAL (1mg/ml) ONE (09:46)
[2024-05-20] MEDS ORDERED: PROPOFOL 10 MG/ML 20 ML IV ONE (09:46)
[2024-05-20] MEDS ORDERED: LIDOCAINE 2% (LOCAL ANESTH.) PF 5ml SDV ONE (09:47)
[2024-05-20] MEDS ORDERED: ONDANSETRON HCL 4 MG/2 ML VIAL ONE (09:47)
[2024-05-20] MEDS ORDERED: DexAMETHasone SOD PHOS 10MG/1ML VIAL INJ ONE (09:47)
[2024-05-20] MEDS ORDERED: ROCURONIUM 10MG/ML 10ML VIAL IV ONE (09:47)
[2024-05-20] MEDS ORDERED: SUGAMMADEX 200mg/2ml Vial (100MG/ML) IV ONE (09:48)
[2024-05-20] MEDS: ceFAZolin 1GM/50ML 100 ML IV ONE (10:44)
[2024-05-20] MEDS ORDERED: HYDROmorphone HCL 2 MG/ML VL/or syr ONE (10:46)
--- NOTE | 2024-05-20 12:21 | DVHOP ---
DATE OF SURGERY: 05/20/2024 PREOPERATIVE DIAGNOSIS: Incarcerated left inguinal hernia. POSTOPERATIVE DIAGNOSIS: Incarcerated left inguinal hernia. SURGEON: Rome Severino MD SOIL EXPERT: Al Navarro NP ANESTHESIA: General endotracheal, Wolfgang Mathias. PROCEDURE: Repair of incarcerated left inguinal scrotal hernia. DESCRIPTION OF PROCEDURE: Under adequate anesthesia with the patient's skin prepped and draped, 0.25% Marcaine was infiltrated into the skin and subcutaneous tissues at the site of the incarcerated left inguinal scrotal hernia. The incision was made through the skin, adipose tissue, and Michele's fascia down onto the fibers of the external oblique aponeurosis. This was opened in direction of its fibers. The ilioinguinal nerve was identified and reflected laterally and protected. The cord structures were entangled with a huge herniation which was extremely edematous and very difficult to manipulate. A [place] clamp was used to secure the hernia. However, with manipulation, the bowel within the hernia was felt to reduce into the peritoneal cavity. The sac was then grasped with Gregorio clamps and opened, digitally explored, contained no bowel. There was no evidence of incarceration of the sac itself and there was no bloody fluid within the sac. However, the tissues were extremely edematous. The tissues were swept from this markedly thickened sac and the hernia floor was then repaired using #1 nonabsorbable sutures through the conjoint tendon and Poupart's fascia. An external ring was recreated to accommodate the in addition to the cord structures, which were very edematous and subsequently the testicle was put on tension into its scrotal compartment. Subcutaneous tissues and skin were approximated using Monocryl sutures, Dermabond glue, and Steri-Strips. The patient remained stable throughout the procedure and left the operating room following an accurate needle and sponge count. MD VIANNEY Calabrese/FRENCH/CLEM TID: [id number] RECEIPT: [id number]
[2024-05-20] MEDS: SUCCINYLCHOLINE CHLORIDE 20 MG/ML 10ML VIAL IV ONE (13:04)
[2024-05-20] MEDS: PANTOPRAZOLE 40 MG/10 ML VIAL INJ IV SCH (13:17)
[2024-05-20] MEDS ORDERED: ceFAZolin 2 GM/D5W50ml 50 ML IV SCH (14:00)
[2024-05-20] MEDS: ceFAZolin 2 GM/D5W50ml 50 ML IV SCH (18:50)
--- NOTE | 2024-05-21 11:58 | DVHDSRES ---
Discharge Summary Date of Admission Resident Creating Document: HENNY PALMA RESIDENT May 19, 2024 at 23:51 Date of Discharge: May 20, 2024 Admitting Diagnosis Strangulated left inguinal hernia Labs/Diagnostic Data: Laboratory Results Test 05/20/24 16:26 05/20/24 03:29 05/19/24 22:44 Plasma/Serum Blood Alcohol 3.8 mg/dL (<10) White Blood Count 9.7 10^3/uL (4.4-10.8) Red Blood Count 4.21 10^6/uL (4.5-5.90) Hemoglobin 13.5 g/dL (13.5-17.5) Hematocrit 40.0 % (41.0-53.0) Mean Corpuscular Volume 94.9 fL (80.0-100.0) Mean Corpuscular Hemoglobin 32.0 pg (28.0-32.0) Mean Corpuscular Hemoglobin Concent 33.7 g/dL (32.0-36.0) Red Cell Distribution Width 13.5 % (11.8-14.3) Platelet Count 281 10^3/uL (140-450) Mean Platelet Volume 8.4 fL (6.9-10.8) Neutrophils (%) (Auto) 61.5 % (37.0-80.0) Lymphocytes (%) (Auto) 23.9 % (10.0-50.0) Monocytes (%) (Auto) 11.6 % (0.0-12.0) Eosinophils (%) (Auto) 2.6 % (0.0-7.0) Basophils (%) (Auto) 0.4 % (0.0-2.0) Neutrophils # (Auto) 6.0 10 ^3/uL (1.6-8.6) Lymphocytes # (Auto) 2.3 10 ^3/uL (0.4-5.4) Monocytes # (Auto) 1.1 10 ^3/uL (0-1.3) Eosinophils # (Auto) 0.2 10 ^3/uL (0-0.8) Basophils # (Auto) 0 10 ^3/uL (0-0.2) Nucleated Red Blood Cells 0.0 % Sodium Level 142 mmol/L (136-145) Potassium Level 3.6 mmol/L (3.5-5.1) Chloride Level 108 mmol/L (98-107) Carbon Dioxide Level 26 mmol/L (20-31) Anion Gap 8 (5-15) Blood Urea Nitrogen 7 mg/dL (9-23) Creatinine 0.97 mg/dL (0.700-1.30) Glomerular Filtration Rate Calc 105 mL/min (>90) BUN/Creatinine Ratio 7.2 (10.0-20.0) Serum Glucose 88 mg/dL (74-106) Hemoglobin A1c 5.2 % A1C (<5.7) Calcium Level 9.2 mg/dL (8.7-10.4) Total Bilirubin 1.0 mg/dL (0.2-1.0) Aspartate Amino Transferase (AST) 9 U/L (13-40) Alanine Aminotransferase (ALT) 15 U/L (7-40) Alkaline Phosphatase 68 U/L (46-116) Total Protein 6.2 g/dL (5.7-8.2) Albumin 4.0 g/dL (3.2-4.8) Prothrombin Time 11.2 sec (9.3-11.8) Prothrombin Time INR 1.06 (0.9-1.15) Activated Partial Thromboplast Time 29.6 SEC (24.5-34.5) Lactate Dehydrogenase 244 U/L (120-246) Other Laboratory Tests 05/20/24 03:29 Brief Hx & Hospital Course: Patient is 33 years old male with a history of lung inguinal hernia, bilateral kidney stone, history of UTI, drug abuse marijuana came with a complaint of left lower abdominal pain. Patient reported that he has been having pain in the left lower abdomen for 2 days where he has swelling of the inguinal region, swelling extending up to the scrotum. Patient reported he went to the ER and had a CT of the abdomen and then he was discharged with a any surgical intervention. Patient reported that the pain kept coming back swelling reduce and then the urgent care where he was recommended to go back to the emergency room with the evaluation and care. Patient reported the pain was 10/10, crampy, sharp in nature, aggravated with coughing or moving around or restraining, some relief with the pain. Patient complains of ongoing pain and swelling. Patient also reported his scrotum is still swollen and not getting any better. On physical exam there is left inguinal anfd scrotal swelling with irreducible left inguinal hernia, strangulated inguinal hernia with tenderness. Patient was seen by surgeon Dr. Ames recommended for urgent surgical intervention. CT abdomen on 05/18/2024 revealed-Bowel containing left inguinal hernia with adjacent fat stranding.Thickening of the descending colon could be colitis. Normal appendix. 1.4 cm right kidney stone. Initial lab workup revealed leukocytosis with WBC 12.4. Patient had Repair of incarcerated left inguinal scrotal hernia by done Dr. Ames. Patient left AMA-against medical advice. Patient's condition was undetermined on discharge PMH-kidney stone, left inguinal hernia, history of UTI PSH-repair of left anterior cruciate ligament surgery, tonsillectomy Allergy-NKDA Operations or Procedures Signed PATIENT: Danyelle Miller ACCT: [id number] UNIT: [id number] : 1990 LOC: ER ROOM / BED: / AGE / SEX: 33 / M ADM STATUS: REG ER SERVICE 1030 ORDERING PHYSICIAN: CODY TINSLEY MD PROCEDURE(s): ABPL - CT AB PEL WO CON-NO ORAL OR IV REASON: abdominal pain ORDER NUMBER(s): [id number], ACCESSION NUMBER(s): [id number] CT CT AB PEL WO CON-NO ORAL OR IV INDICATION: abdominal pain EXAM DATE: 05/18/2024 10:44 AM COMPARISON: None RADIATION DOSE: CTDIvol: 9.53 mGy, DLP: 791.71 mGy*cm PROCEDURE: Helical CT images were obtained of the abdomen and pelvis without IV contrast Sagittal and coronal reconstructions are provided. ORAL CONTRAST: None. ADDITIONAL IMAGES / REFORMATS: None All CT scans at this medical facility are performed using dose modulation techniques as appropriate to a performed exam including the following: Automated exposure control was utilized; adjustment of the MA and/or KV according to patient size; and use of iterative reconstruction technique. FINDINGS: LUNG BASE: Normal. LIVER: Normal. GALLBLADDER AND BILIARY TREE: No calcified gallstones. Normal caliber wall. No intra- or extrahepatic biliary ductal dilation. PANCREAS: Normal. SPLEEN: Normal. BOWEL: Thickening of the descending colon could be colitis. Normal appendix. ADRENALS: Normal. KIDNEYS AND URETER: 1.4 cm right kidney stone. 4.2 cm left kidney cyst. BLADDER: Normal. REPRODUCTIVE ORGANS: Normal. LYMPH NODES:No lymphadenopathy. PERITONEUM: No ascites or free air. No other fluid collection. VESSELS: Normal. RETROPERITONEUM: Normal. ABDOMINAL WALL: Bowel containing left inguinal hernia with adjacent fat stranding. Small fat containing ventral wall hernia. BONES: Scattered osseous degenerative changes are noted. IMPRESSION: Bowel containing left inguinal hernia with adjacent fat stranding. Thickening of the descending colon could be colitis. Normal appendix. 1.4 cm right kidney stone. ATED BY: HUBER CRAWFORD MD DICTATED DATE/TIME: 05/18/241111 SIGNED BY: HUBER CRAWFORD MD SIGNED DATE/TIME: 05/18/241111 CC: Patient: DANYELLE SCHROEDER Acct: [id number] : 1990 Loc: OVERFLOW Age/Sex: 33/M Room: [address] [place] [address] / Bed: A Attending Phy: HENNY PALMA RESIDENT DATE OF SURGERY: 05/20/2024 PREOPERATIVE DIAGNOSIS: Incarcerated left inguinal hernia. POSTOPERATIVE DIAGNOSIS: Incarcerated left inguinal hernia. SURGEON: Calin Ames MD ASSISTANT PROFESSOR SCULPTURE: Al Navarro NP ANESTHESIA: General endotracheal, Wolfgang Mathias. PROCEDURE: Repair of incarcerated left inguinal scrotal hernia. DESCRIPTION OF PROCEDURE: Under adequate anesthesia with the patient's skin prepped and draped, 0.25% Marcaine was infiltrated into the skin and subcutaneous tissues at the site of the incarcerated left inguinal scrotal hernia. The incision was made through the skin, adipose tissue, and Michele's fascia down onto the fibers of the external oblique aponeurosis. This was opened in direction of its fibers. The ilioinguinal nerve was identified and reflected laterally and protected. The cord structures were entangled with a huge herniation which was extremely edematous and very difficult to manipulate. A Leydi clamp was used to secure the hernia. However, with manipulation, the bowel within the hernia was felt to reduce into the peritoneal cavity. The sac was then grasped with Gregorio clamps and opened, digitally explored, contained no bowel. There was no evidence of incarceration of the sac itself and there was no bloody fluid within the sac. However, the tissues were extremely edematous. The tissues were swept from this markedly thickened sac and the hernia floor was then repaired using #1 nonabsorbable sutures through the conjoint tendon and Poupart's fascia. An external ring was recreated to accommodate the in addition to the cord structures, which were very edematous and subsequently the testicle was put on tension into its scrotal compartment. Subcutaneous tissues and skin were approximated using Monocryl sutures, Dermabond glue, and Steri-Strips. The patient remained stable throughout the procedure and left the operating room following an accurate needle and sponge count. MD VIANNEY Calabrese/FRENCH/CLEM TID: [id number] RECEIPT: [id number] DICTATED BY:CALIN AMES MD DICTATED DATE/TIME:05/20/24924 ELECTRONICALLY SIGNED BY: ELECTRONICALLY CO-SIGNED BY: Condition at Discharge: Undetermined Final Diagnosis/Problems List #Repair of incarcerated left inguinal scrotal hernia. # Left inguinal region pain and swelling due to strangulated left inguinal scrotal hernia, status post surgical intervention # Strangulated left inguinal hernia-needed immediate surgical intervention # right renal stone # history of UTI # substance abuse marijuana Discharge Disposition: AMA Discharge Statement: "Patient was advised to return to the ER or call 911 if any headaches, dizziness, shortness of breath, chest pain, abdominal pain, bleeding, fevers, or worsening of medical condition. Patient was counseled about treatment plan, medications, possible side effects, patientverbalized understanding. All questions were answered to the best of my ability. This discharge took greater then 30 minutes in planning, reviewing documentation, counseling the patient, and discussing with other team members." ASSESSMENT ASSESSMENT Assessment HENNY PALMA RESIDENT May 21, 2024 11:58
[2024-05-22 10:12] LABS: Hepatitis B Surface Antigen Negative (Negative); Hepatitis C Antibody Negative (Negative)
== END 2024-05-20 21:12 | disposition left against medical advice (07) | DRG 228 ==
LOC: ER 22:04 → OVERFLOW 23:51 → WEST WING 05-20 13:30
PROVIDERS: ADMIT Internal Medicine Geriatric Medicine; ATTEND Emergency Medicine
PROC: 0YQ60ZZ Repair Left Inguinal Region, Open Approach (ICD-10-PCS; principal; 2024-05-20 10:19)
DX: K40.30 Unilateral inguinal hernia, with obstruction, without gangrene, not specified as recurrent (principal); D72.829 Elevated white blood cell count, unspecified; F12.10 Cannabis abuse, uncomplicated; K59.00 Constipation, unspecified; Z87.442 Personal history of urinary calculi; Z87.440 Personal history of urinary (tract) infections
CPT/HCPCS: 36415; 71045; 80048; 80053; 80320; 83036; 83615; 85025; 85610; 85730; 86803; 86850; 86900; 86901; 87340; 88302; 99291; C1781; G0378; J0330; J1100; J2003; J2250; J2405; J2470; J2704; J3490